=== PATIENT | female | born 1945 | race Caucasian/White ===

== ENCOUNTER → 2018-03-05 | Outpatient (CLI) | payer OTHER ==
--- NOTE | ~2018-03-05 | EKG ---
[address] [address] ELECTROCARDIOGRAM REPORT Name: JAYLYN MURRIETA Room #: [facility] CHILDRENLauren#: [id number] Admission: 03/05/18 Attend Phys: Esther Dang MD Discharge: Date of : 49 Report #: [id number] THIS REPORT FOR: //name// [facility] Test Date: 2018-03-05 Test Time: 14:45:47 Pat Name: JAYLYN MURRIETA Department: Room: Gender: F Council Member: Smita BIRD : 1945 Requested By: Esther Dang Order Number: [id number] MD: John Stack Measurements Intervals [place] Rate: 61 P: 73 ND: 126 QRS: 47 QRSD: 78 T: 15 QT: 411 QTc: 414 Interpretive Statements Sinus rhythm Atrial premature complex Abnormal R-wave progression, early transition No previous ECG available for comparison Electronically Signed On 03-06-2018 14:26:20 CDT by John Stack [email or web address] <ELECTRONICALLY SIGNED> By: John Stack MD 03/06/18 1426 1445 1445 John Stack MD /[email or web address]
== END ==
LOC: CV 14:10
DX: Z01.810 Encounter for preprocedural cardiovascular examination (principal)